=== PATIENT | female | born 1940 | race Caucasian/White ===

== ENCOUNTER 2021-05-17 09:36 | Emergency (ER) | payer MEDICARE, BC ==
[2021-05-17] MEDS ORDERED: Voltaren Gel 1 % TOP (12:44)
[2021-05-18] MEDS ORDERED: IRBESARTAN150 MG PO (21:31)
[2021-05-18] MEDS ORDERED: TRAMADOL HCL50 MG PO (21:31)
[2021-05-18] MEDS ORDERED: ATIVAN 1MG TABLE1 MG PO (21:32)
[2021-05-18] MEDS ORDERED: SYNTHROID25 MCG PO (21:32)
[2021-05-18] MEDS ORDERED: ADVAIR HFA 230/12 GM INH (21:33)
[2021-05-18] MEDS ORDERED: SIMVASTATIN80 MG PO (21:34)
[2021-05-18] MEDS ORDERED: ESCITALOPRAM OX10 MG PO (21:34)
[2021-05-18] MEDS ORDERED: ESOMEPRAZOLE MA20 MG PO (21:35)
== END 2021-05-17 13:15 | disposition home or self-care (01) ==
LOC: ER1 09:36
DX: S83.92XA Sprain of unspecified site of left knee, initial encounter (principal); Z88.5 Allergy status to narcotic agent; X50.1XXA Overexertion from prolonged static or awkward postures, initial encounter
CPT/HCPCS: 73564; 99283

== ENCOUNTER 2021-05-18 12:33 | Inpatient (IN) | payer MEDICARE, BC ==
[~2021-05-18] VITALS: Ht 154.9 cm; Wt 65.8 kg
[~2021-05-18 12:33] MED LIST: Voltaren Gel 1 % TOP
[2021-05-18 14:49] LABS: HEMOGLOBIN 12.8 gm/dl (12.3-15.3); RED BLOOD COUNT 4.08 M/UL (4.00-5.10); WHITE BLOOD COUNT 22.5 K/UL (4.5-11.0)
[2021-05-18 15:10] LABS: BUN/CREATININE RATIO 19 (0-10)
[2021-05-18 18:10] LABS: MONONUCLEAR CELLS 13 %; POLYMORPHONUCLEAR 87 %; RBC (AUTOMATED) 20000 10^6; WBC (AUTOMATED) 59200 10^3
[2021-05-18] MEDS ORDERED: IRBESARTAN150 MG PO (21:31)
[2021-05-18] MEDS ORDERED: TRAMADOL HCL50 MG PO (21:31)
[2021-05-18] MEDS ORDERED: SYNTHROID25 MCG PO (21:32)
[2021-05-18] MEDS ORDERED: ATIVAN 1MG TABLE1 MG PO (21:32)
[2021-05-18] MEDS ORDERED: ADVAIR HFA 230/12 GM INH (21:33)
[2021-05-18] MEDS ORDERED: ESCITALOPRAM OX10 MG PO (21:34)
[2021-05-18] MEDS ORDERED: SIMVASTATIN80 MG PO (21:34)
[2021-05-18] MEDS ORDERED: ESOMEPRAZOLE MA20 MG PO (21:35)
[2021-05-19 06:45] LABS: HEMOGLOBIN 11.6 gm/dl (12.3-15.3); RED BLOOD COUNT 3.87 M/UL (4.00-5.10)
[2021-05-19 06:55] LABS: WHITE BLOOD COUNT 14.3 K/UL (4.5-11.0)
[2021-05-19 07:10] LABS: BUN/CREATININE RATIO 18 (0-10)
[2021-05-20 07:41] LABS: HEMOGLOBIN 10.9 gm/dl (12.3-15.3); RED BLOOD COUNT 3.61 M/UL (4.00-5.10)
[2021-05-20 07:48] LABS: WHITE BLOOD COUNT 9.7 K/UL (4.5-11.0)
[2021-05-20 08:13] LABS: BUN/CREATININE RATIO 15 (0-10)
[2021-05-20] MEDS ORDERED: FLU VACCINE IM (08:40)
[2021-05-20] MEDS ORDERED: ZYVOX IV 6600 MG/300 IV (08:40)
--- NOTE | 2021-05-20 17:39 | NUR ---
PT RECEIVED RIGHT UPPER ARM PICC TODAY FOR POSSIBLE HOME DISCHARGE IN THE AM, NO DISTRESS NOTED. SHEHAS HER CALL FERNANDES AND PHONE IN REACH.
[2021-05-20] MEDS ORDERED: VANCOMYCIN500 MG/101 IV (17:40)
[2021-05-21 06:31] LABS: HEMOGLOBIN 11.5 gm/dl (12.3-15.3); RED BLOOD COUNT 3.67 M/UL (4.00-5.10); WHITE BLOOD COUNT 9.8 K/UL (4.5-11.0)
[2021-05-21 07:06] LABS: BUN/CREATININE RATIO 15 (0-10)
[2021-05-21] MEDS ORDERED: ROCEPHIN (11:22)
[2021-05-21] MEDS ORDERED: ROCEPHIN IV (11:23)
[2021-05-21 12:12] LABS: PROTEIN, BODY FLUID 4.7 g/dL (.)
--- NOTE | 2021-05-21 13:51 | NUR ---
PT DECLINED FLU VACCINE, [facility] WILL OB[facility].
[2021-05-24 08:13] LABS: LDH, BODY FLUID 4814 IU/L (.)
== END 2021-05-21 14:11 | disposition home health service (06) | DRG 872 ==
LOC: ER1 12:33 → CDU 19:28 → M/S 19:28
PROVIDERS: Physician Assistant; ADMIT Family Medicine
PROC: 0S9D3ZX Drainage of Left Knee Joint, Percutaneous Approach, Diagnostic (ICD-10-PCS; principal; 2021-05-18)
DX: A40.8 Other streptococcal sepsis (principal); M00.262 Other streptococcal arthritis, left knee; R65.10 Systemic inflammatory response syndrome (SIRS) of non-infectious origin without acute organ dysfunction; I10 Essential (primary) hypertension; E78.5 Hyperlipidemia, unspecified; Z20.822 Contact with and (suspected) exposure to COVID-19; F41.9 Anxiety disorder, unspecified; E03.9 Hypothyroidism, unspecified; J45.909 Unspecified asthma, uncomplicated; Z96.652 Presence of left artificial knee joint; M25.462 Effusion, left knee; F32.9 Major depressive disorder, single episode, unspecified; Z90.49 Acquired absence of other specified parts of digestive tract; Z98.41 Cataract extraction status, right eye; Z98.42 Cataract extraction status, left eye; Z88.5 Allergy status to narcotic agent; Z88.6 Allergy status to analgesic agent; Z82.49 Family history of ischemic heart disease and other diseases of the circulatory system; Z86.010 Personal history of colon polyps; Z79.899 Other long term (current) drug therapy; B95.4 Other streptococcus as the cause of diseases classified elsewhere
CPT/HCPCS: 10021; 36415; 80048; 80053; 80202; 82945; 83605; 83615; 83735; 83880; 84100; 84132; 84157; 85025; 85027; 85610; 85652; 85730; 86140; 87040; 87070; 87077; 87186; 87205; 89051; 89060; 94640; 94760; 99285; C1751; J0696; J3370; J7030; J7070; U0002

== ENCOUNTER 2021-06-02 08:17 | Inpatient (IN) | payer MEDICARE, BC ==
[~2021-06-02] VITALS: Ht 154.9 cm; Wt 67.1 kg
[~2021-06-02 08:17] MED LIST changes: +ADVAIR HFA 230/1 INH INH; +ADVAIR HFA 230/12 GM INH; +ATIVAN 1MG TABLE1 MG PO; +ATIVAN1 MG PO; +ESCITALOPRAM OX10 MG PO; +ESOMEPRAZOLE MA20 MG PO; +FISH OIL 1,0001 EAC5 PO; +FLU VACCINE IM; +HYDROCODON-ACE1 EAC2 PO; +IRBESARTAN150 MG PO; +LEVOTHYROXINE25 MC1 PO; +LEXAPRO10 MG PO; +NEXIUM20 MG PO; +PREVIDENT MT; +ROCEPHIN; +ROCEPHIN IV; +SIMVASTATIN80 MG PO; +SYNTHROID25 MCG PO; +TRAMADOL HCL50 MG PO; +ULTRAM50 MG PO; +VANCOMYCIN500 MG/101 IV; +ZYVOX IV 6600 MG/300 IV; +[UNRECOGNIZED DRUG - OTHER] MT
[2021-06-02 09:00] LABS: HEMOGLOBIN 11.4 gm/dl (12.3-15.3); RED BLOOD COUNT 3.75 M/UL (4.00-5.10); WHITE BLOOD COUNT 8.6 K/UL (4.5-11.0)
[2021-06-02 09:17] LABS: BUN/CREATININE RATIO 11 (0-10)
[2021-06-02] MEDS ORDERED: ELIQUIS2.5 MG PO (12:36)
[2021-06-02] MEDS ORDERED: ENDOCET 10-3251 EACH PO (12:36)
[2021-06-02] MEDS ORDERED: CEFTRIAXONE IV (15:06)
[2021-06-02] MEDS ORDERED: VANCOMYCIN IV (15:07)
[2021-06-03 04:57] LABS: HEMOGLOBIN 9.1 gm/dl (12.3-15.3); RED BLOOD COUNT 3.03 M/UL (4.00-5.10)
[2021-06-03 05:14] LABS: BUN/CREATININE RATIO 12 (0-10)
[2021-06-04 05:41] LABS: HEMOGLOBIN 8.6 gm/dl (12.3-15.3); RED BLOOD COUNT 2.89 M/UL (4.00-5.10); WHITE BLOOD COUNT 8.4 K/UL (4.5-11.0)
[2021-06-04 06:08] LABS: BUN/CREATININE RATIO 11 (0-10)
--- NOTE | 2021-06-04 11:47 | NUR ---
ACTICOAT DRESSING CHANGED PER PROTOCOL. HEMOVAC DRAIN REMOVED. PATIENT TOLERATED WELL.
[2021-06-05 08:08] LABS: HEMOGLOBIN 8.9 gm/dl (12.3-15.3); RED BLOOD COUNT 3.01 M/UL (4.00-5.10); WHITE BLOOD COUNT 9.1 K/UL (4.5-11.0)
[2021-06-05 08:11] LABS: BUN/CREATININE RATIO 16 (0-10)
--- NOTE | 2021-06-06 01:15 | NUR ---
NO CHEST X RAY ORDERED.
[2021-06-06 04:08] LABS: HEMOGLOBIN 8.7 gm/dl (12.3-15.3); RED BLOOD COUNT 2.92 M/UL (4.00-5.10); WHITE BLOOD COUNT 8.6 K/UL (4.5-11.0)
[2021-06-06 05:25] LABS: BUN/CREATININE RATIO 15 (0-10)
--- NOTE | 2021-06-06 12:39 | NUR ---
patient reports of wound care start tommorrow per dr. baldwin. polar ice in place.
--- NOTE | 2021-06-06 12:55 | NUR ---
report given to endy perezitting nurse of [facility]
--- NOTE | 2021-06-06 19:09 | NUR ---
verified vancomycin order from dr. sloan and he order to d/c vancomycin. pass along the order to home health nurse and verb understanding
== END 2021-06-06 14:08 | disposition home health service (06) | DRG 486 ==
LOC: OR 08:17 → M/S 16:20 → OR 16:21 → M/S 16:21
PROVIDERS: Internal Medicine Infectious Disease; Orthopaedic Surgery; ADMIT Orthopaedic Surgery
PROC: 0SPD09Z Removal of Liner from Left Knee Joint, Open Approach (ICD-10-PCS; 2021-06-02)
PROC: 0SUW09Z Supplement Left Knee Joint, Tibial Surface with Liner, Open Approach (ICD-10-PCS; 2021-06-02)
PROC: 0SBD0ZZ Excision of Left Knee Joint, Open Approach (ICD-10-PCS; principal; 2021-06-02 12:30)
DX: T84.54XA Infection and inflammatory reaction due to internal left knee prosthesis, initial encounter (principal); M00.862 Arthritis due to other bacteria, left knee; Z20.822 Contact with and (suspected) exposure to COVID-19; Y83.9 Surgical procedure, unspecified as the cause of abnormal reaction of the patient, or of later complication, without mention of misadventure at the time of the procedure; I10 Essential (primary) hypertension; E78.5 Hyperlipidemia, unspecified; F41.9 Anxiety disorder, unspecified; F32.A Depression, unspecified; E03.9 Hypothyroidism, unspecified; Z96.652 Presence of left artificial knee joint; M19.90 Unspecified osteoarthritis, unspecified site; Z90.89 Acquired absence of other organs; Z98.42 Cataract extraction status, left eye; Z98.41 Cataract extraction status, right eye; Z82.49 Family history of ischemic heart disease and other diseases of the circulatory system; Z80.8 Family history of malignant neoplasm of other organs or systems
CPT/HCPCS: 36415; 73560; 80048; 80053; 80202; 85025; 85027; 86140; 87070; 87075; 87205; 93005; 94640; 94664; 94760; 97110-GP-CQ; 97116-GP-CQ; 97161; 97165; 97530-GP-CQ; 97535; J0690; J0696; J1100; J1885; J2001; J2270; J2370; J2405; J2550; J2704; J3010; J3370; J7030; J7070; J7120; U0003

== ENCOUNTER → 2021-06-10 | Outpatient (CLI) | payer MEDICARE, BC ==
[~2021-06-10] MED LIST changes: +CEFTRIAXONE IV; +ELIQUIS2.5 MG PO; +ENDOCET 10-3251 EACH PO; +VANCOMYCIN IV
== END ==
LOC: KOH-I 10:45
DX: I82.402 Acute embolism and thrombosis of unspecified deep veins of left lower extremity (principal); R60.9 Edema, unspecified
CPT/HCPCS: 93971

== ENCOUNTER → 2021-11-28 | Outpatient (CLI) | payer MEDICARE, BC | LOC: MAMO 14:53 | DX: Z12.31 Encounter for screening mammogram for malignant neoplasm of breast (principal) | CPT/HCPCS: 77063; 77067 ==

== ENCOUNTER → 2022-01-24 | Outpatient (CLI) | payer MEDICARE, BC | LOC: LAB 11:09 | DX: Z98.890 Other specified postprocedural states (principal) | CPT/HCPCS: 85652; 86140 ==

== ENCOUNTER → 2022-05-05 | Outpatient (CLI) | payer MEDICARE, BC ==
[2022-05-05 15:36] LABS: HEMOGLOBIN 13.6 gm/dl (12.3-15.3); RED BLOOD COUNT 4.52 M/UL (4.00-5.10); WHITE BLOOD COUNT 7.8 K/UL (4.5-11.0)
== END ==
LOC: LAB 14:39
PROVIDERS: Orthopaedic Surgery
DX: M00.862 Arthritis due to other bacteria, left knee (principal)
CPT/HCPCS: 36415; 85027; 85652; 86140